=== PATIENT | male | born 1965 | race Caucasian/White ===

== ENCOUNTER 2020-06-05 03:16 | Emergency (ER) | payer MEDICAID ==
[~2020-06-05] VITALS: Ht 188 cm; Wt 97.5 kg
[2020-06-05 03:28] VITALS: BP 134/87
[2020-06-05] MEDS ORDERED: cefTRIAXone SOD 1,000 MG VL IM ONE (05:45)
[2020-06-05] MEDS ORDERED: KETOROLAC TROMETH 60MG/2ML VIAL IM ONE (05:45)
[2020-06-05] MEDS ORDERED: CLINDAMYCIN HCL 150 MG CAP PO ONE (05:45)
== END 2020-06-05 06:26 | disposition home or self-care (01) ==
LOC: ER 03:21
DX: L03.317 Cellulitis of buttock (principal); F15.10 Other stimulant abuse, uncomplicated
CPT/HCPCS: 96372; 99284; J0696; J1885

== ENCOUNTER 2021-03-22 10:21 | Emergency (ER) | payer MEDICAID ==
[~2021-03-22] VITALS: Ht 160 cm; Wt 99.8 kg
[2021-03-22 10:32] VITALS: BP 133/73
== END 2021-03-22 13:42 | disposition home or self-care (01) ==
LOC: ER 10:21
DX: S31.104A Unspecified open wound of abdominal wall, left lower quadrant without penetration into peritoneal cavity, initial encounter (principal); F17.210 Nicotine dependence, cigarettes, uncomplicated; Z90.89 Acquired absence of other organs; W34.00XA Accidental discharge from unspecified firearms or gun, initial encounter; Y93.89 Activity, other specified; Y92.89 Other specified places as the place of occurrence of the external cause; Y99.8 Other external cause status
CPT/HCPCS: 93926

== ENCOUNTER 2023-11-21 05:52 | Emergency (ER) | payer MEDICAID ==
[~2023-11-21] VITALS: Ht 185.4 cm; Wt 94.5 kg
[2023-11-21 07:00] VITALS: BP 132/71; PULSE 53; RESP 14; TEMP 98.7; O2SAT 98
[2023-11-21 07:31] VITALS: PULSE 63; RESP 16; O2SAT 96
[2023-11-21] MEDS ORDERED: CYCL-839 PO (07:57)
[2023-11-21] MEDS ORDERED: MELO7.5T7 PO (07:57)
== END 2023-11-21 08:06 | disposition home or self-care (01) ==
LOC: ER 05:52
DX: S33.5XXA Sprain of ligaments of lumbar spine, initial encounter (principal); M54.89 Other dorsalgia; F17.210 Nicotine dependence, cigarettes, uncomplicated; F15.90 Other stimulant use, unspecified, uncomplicated; Z90.89 Acquired absence of other organs; Z98.890 Other specified postprocedural states; X58.XXXA Exposure to other specified factors, initial encounter; Y93.89 Activity, other specified; Y92.89 Other specified places as the place of occurrence of the external cause; Y99.8 Other external cause status